=== PATIENT | male | born 1975 | race African-American/Black ===

== ENCOUNTER → 2021-02-16 | Outpatient (CLI) | payer OTHER ==
--- NOTE | 2021-02-16 15:59 | RAD ---
EXAMINATION: MRI RIGHT LOWER EXTREMITY JOINT WITHOUT INDICATIONS: Acute right medial knee pain.[id number] TECHNIQUE: Multiplanar multisequence MRI of the right knee was obtained without contrast. COMPARISON: None. FINDINGS: MENISCI: There is free edge fraying of the body medial meniscus. Tiny low signal focus anterior to t he posterior horn-root junction medial meniscus is indeterminate (image 11, series 6 and 7), possibly artifact. Tiny meniscal fragment less likely given the fact that there is no discrete meniscus tear visualized. The lateral meniscus is intact. LIGAMENTS: The anterior and posterior cruciate ligaments are intact. The medial collateral ligament and lateral collateral ligament complex including popliteus tendon are intact. EXTENSOR MECHANISM: There is mild thickening and increased signal in the proximal patella with a chr onic ossicle within the tendon. Quadriceps tendon is intact. Fat pads are normal. Retinacula are inta ct. BONES AND CARTILAGE: Cartilage is intact without focal defect.. Marrow signal is normal. No acute fr acture. OTHER: Moderate joint effusion. There is a 1 x 0.6 cm nodular intermediate density structure at the posterior intercondylar notch behind the proximal portion of the PCL, possibly focal synovitis (image 13, series 6). Mild edema along the posterior joint capsule IMPRESSION: 1. Fraying of the free edge medial meniscus. Indeterminate tiny low signal focus along the posterior horn-root junction medial meniscus without discrete tear, as described. 2.Moderate joint effusion. 1 cm nodular intermediate density structure in the posterior intercondylar notch, possibly focal synovitis. 3. Patellar tendinopathy. 4. Edema along the posterior joint capsule. Electronically signed by: Dolly Hoyos MD (02/16/2021 3:56 PM) [id number]
== END ==
LOC: MRI 09:03
PROVIDERS: ATTEND Preventive Medicine Occupational Medicine
DX: Z00.00 Encounter for general adult medical examination without abnormal findings (principal); M25.461 Effusion, right knee
CPT/HCPCS: 73721